=== PATIENT | female | born 1975 | race Hispanic/Latino ===

== ENCOUNTER 2017-09-02 10:53 | Emergency (ER) | payer OTHER ==
[2017-09-02] MEDS ORDERED: KETOROLAC TROMETHAMINE 30MG/ML ONE (11:08)
[2017-09-02] MEDS ORDERED: HYDROCODONE/ACETAMINOPHEN 10/325 MG TAB ONE (11:15)
== END 2017-09-02 12:51 | disposition home or self-care (01) ==
LOC: EDH 10:53
DX: S82.841A Displaced bimalleolar fracture of right lower leg, initial encounter for closed fracture (principal); W22.8XXA Striking against or struck by other objects, initial encounter; Y93.89 Activity, other specified; Y92.098 Other place in other non-institutional residence as the place of occurrence of the external cause; Y99.8 Other external cause status
CPT/HCPCS: 29515; 73610; 96372; 99284; J1885